=== PATIENT | male | born 2000 | race Caucasian/White ===

== ENCOUNTER 2024-01-04 08:24 | Emergency (ER) | payer OTHER ==
[~2024-01-04] VITALS: Ht 175.3 cm; Wt 100.0 kg
[2024-01-04] MEDS ORDERED: Ondansetron 4 MG/2 ML VIAL IV ONE (09:00)
[2024-01-04] MEDS ORDERED: Morphine 4 MG/ML VIAL IV ONE (09:00)
[2024-01-04] MEDS ORDERED: NEURONTIN600 MG/TAB PO (09:30)
[2024-01-04] MEDS ORDERED: ZOLOFT 100MG100 MG PO (09:31)
[2024-01-04] MEDS ORDERED: STRATTERA100 MG PO (09:31)
[2024-01-04] MEDS ORDERED: MASON NATURAL2000 IU PO (09:32)
[2024-01-04] MEDS ORDERED: MOTRIN 800800 MG/TAB PO (09:33)
[2024-01-04] MEDS ORDERED: NEURONTIN300 MG/CAP PO (09:34)
[2024-01-04 09:47] LABS: BASO # 0.1 K/mm3 (0.0-0.2); BASO % 0.7 % (0.0-2.0); EOS # 0.3 K/mm3 (0.0-0.7); EOS % 4.7 % (0.0-4.0); GRAN # 4.2 K/mm3 (1.4-6.5); GRAN % 60.4 % (42.2-75.2); HEMATOCRIT 43.2 % (42.0-52.0); HEMOGLOBIN 14.9 g/dl (13.5-18.0); LYMPH % 28.7 % (20.0-51.0); MEAN CELL VOLUME 89 fl (80.0-100.0); MEAN CORPUSCULAR HEMOGLOBIN 31 pg (27-31); MEAN CORPUSCULAR HGB CONC 35 g/dl (33.0-37.0); MEAN PLATELET VOLUME 10.6 fl (7.4-10.4); MONO # 0.4 K/mm3 (0.1-0.6); MONO % 5.1 % (1.7-9.3); PLATELET COUNT 204 K/mm3 (130-400); RED BLOOD COUNT 4.85 M/mm3 (4.20-5.60); REDCELL DISTRIBUTION WIDTH-CV 12.8 % (11.5-14.5)
[2024-01-04 10:09] LABS: ALANINE AMINOTRANSFERASE 27 U/L (0-55); ALBUMIN 4.2 g/dL (3.5-5.0); ALKALINE PHOSPHATASE 80 U/L (40-150); ANION GAP 10 mmol/L (7-16); AST,SGOT 20 U/L (5-34); BILIRUBIN,TOTAL 0.4 mg/dL (0.2-1.2); BLOOD UREA NITROGEN 13 mg/dL (9-21); CALCIUM 9.4 mg/dL (8.4-10.2); CHLORIDE 108 mEq/L (98-107); CREATININE, serum 0.78 mg/dL (0.72-1.25); GLUCOSE 92 mg/dL (70-99); POTASSIUM 4.4 mEq/L (3.5-4.5); SODIUM 140 mEq/L (136-145)
[2024-01-04 10:27] LABS: TROPONIN-I < 0.010 ng/mL (0.00-0.033)
[2024-01-04] MEDS ORDERED: PERCOCET 325 MG1 TA2 PO (10:42)
[2024-01-04] MEDS ORDERED: FLEXERIL 1010 MG/TAB PO (10:42)
[2024-01-04 11:07] VITALS: BP 131/72; PULSE 77
== END 2024-01-04 11:07 | disposition home or self-care (01) ==
LOC: COL.ER 08:24
PROVIDERS: Personal Emergency Response Attendant
DX: M54.6 Pain in thoracic spine (principal); R07.9 Chest pain, unspecified
CPT/HCPCS: J2270; J2405